=== PATIENT | female | born 1965 | race Caucasian/White ===

== ENCOUNTER 2022-03-23 09:39 | Day surgery (SDC) | payer BC ==
[2022-03-19 12:15] VITALS: BMI 33.2
[2022-03-23 11:37] VITALS: RESP 18
[2022-03-23 11:38] VITALS: TEMP 98
[2022-03-23 11:39] VITALS: BP 121/74; PULSE 78
== END 2022-03-23 11:47 | disposition home or self-care (01) ==
LOC: FASU-ENDO 09:39
PROVIDERS: ATTEND Internal Medicine Gastroenterology
PROC: 0DJD8ZZ Inspection of Lower Intestinal Tract, Via Natural or Artificial Opening Endoscopic (ICD-10-PCS; principal; 2022-03-23 10:51)
DX: Z12.11 Encounter for screening for malignant neoplasm of colon (principal); Z83.71 Family history of colonic polyps